=== PATIENT | female | born 1960 | race Caucasian/White ===

== ENCOUNTER 2021-01-30 10:25 | Day surgery (SDC) | payer MEDICARE, OTHER ==
[~2021-01-30] VITALS: Ht 160 cm; Wt 75.0 kg
--- NOTE | 2021-01-30 10:40 | NUR ---
RT COLLECTED COVID 19 SWAB WITH NO COMPLICATIONS. RT USED THE CEPHEID RAPID TEST THROUGH IN HOUSE LAB PER DR REQUEST AT THIS TIME.
[2021-01-30] MEDS ORDERED: CYTOMEL5 MCG (10:55)
[2021-01-30] MEDS ORDERED: LEVOTHYROXINE112 MC1 (10:55)
[2021-01-30] MEDS ORDERED: ESTRACE1 MG (10:56)
[2021-01-30] MEDS ORDERED: PAXIL20 MG (10:56)
[2021-01-30] MEDS ORDERED: CRESTOR5 MG (10:57)
--- NOTE | 2021-01-30 11:51 | NUR ---
pt updated on wait for dr. gallardo.
--- NOTE | 2021-01-30 12:59 | NUR ---
01/30/21 Alek9 Daria Nunez 1252-PATIENT ARRIVED TO PACU ON 2L NC RR EVEN. PATIENT DROWSY FOLLOWING COMMANDS, LAYING PRONE. ABNDAID CDI TO LEFT BACK. IVF INFUSING. DENIES PAIN OR NAUSEA.
--- NOTE | 2021-02-04 06:50 | PATH ---
[facility] [address] [facility] [place], [place] [address] Signed SPECIMEN(S): A BONE MARROW - CORE SPECIMEN(S): B BONE MARROW - ASPIRATION SPECIMEN(S): C FLOW CYTOMETRY, EDTA ASP CLINICAL HISTORY: Bone marrow biopsy. Chief Complaint: Multiple myeloma, unconfirmed. 60-year-old woman with positive SPEP. See attached. C90.00 (multiple myeloma not having achieved remission) DIAGNOSIS SUMMARY: A. Peripheral blood, smear: - No significant histopathologic abnormality. B. Bone marrow, aspirate, clot section, and core biopsy: - Normocellular marrow (30%) with trilineage hematopoiesis. - No increase in blasts (less than 5%). - Adequate iron stores, no ring sideroblasts. - See Diagnostic Comment. DIAGNOSTIC COMMENT: The patient's history of hypothyroidism and an SPEP demonstrating decreased albumin and beta-1 globulin levels is noted. Immunofixation was not performed. Evaluation of the current bone marrow biopsy demonstrates mildly increased plasma cells, which show polytypic light chain expression by flow cytometry and in situ hybridization stains. As such, diagnostic features of a plasma cell neoplasm are not present in the current bone marrow. Correlation with clinical and laboratory findings is recommended. Karyotype studies are pending, with results to be reported in an addendum. J[facility]:slh:C2NR PERIPHERAL BLOOD: HEMOGRAM ([facility], 01/30/2021): WBC 9.9 K/uL, RBC 4.22 M/uL, HGB 13.9 g/dL, HCT 41.7%, MCV 98.7 fL, MCH 32.9 pg, MCHC 33.4 g/dL, RDW 13.5%, PLT 336 K/uL, MPV 9.0 fL. MANUAL DIFFERENTIAL COUNT (100 cells, performed by pathologist): Segmented neutrophils 62%, lymphocytes 29%, monocytes 6%, eosinophils 3%. The red cells are normal in number and are normochromic and normocytic. Anisopoikilocytosis is not prominent. Polychromasia is not significantly increased. Leukocytes are normal in number. No significant dysplastic features are seen in the neutrophils, and circulating blasts are not detected. Lymphocytes are predominantly small and mature. PATIENT NAME: ASHLEY NASSAR PATHOLOGY DATE OF : 64 REPORT #: [id number] PHYSICIAN: JUWAN PATHOLOGY PCP: OTHER PCP REPORT IS CONFIDENTIAL AND NOT TO BE RELEASED WITHOUT AUTHORIZATION [facility] [address] [place], [place] [address] Signed Platelets are normal in number and show unremarkable morphology. BONE MARROW: BONE MARROW ASPIRATE SMEARS: The bone marrow aspirate smears show adequate cellular spicules. Myeloids are present in adequate number and demonstrate full spectrum maturation. Erythroids are also present in adequate number, showing full spectrum maturation. Blasts are not increased. An occasional plasma cell is seen, but they do not appear significantly increased. Megakaryocytes are present in adequate number and demonstrate normal morphology. MANUAL DIFFERENTIAL COUNT (200 cells): Blasts 0.5%, promyelocytes 1%, myelocytes 3.5%, metamyelocytes 1%, segs/bands 27%, erythroids 40.5%, lymphocytes 18%, plasma cells 1.5%, monocytes 4.5%, eosinophils 2.5%. BONE MARROW CORE BIOPSY AND ASPIRATE CLOT SECTION CELL BLOCK: The bone marrow core biopsy demonstrates a cellularity of approximately 30%, which is normocellular for age. The estimated M:E ratio is approximately 2:1. Both myeloids and erythroids demonstrate full spectrum maturation. A few scattered plasma cells are seen, but no abnormal clusters are appreciated. Blasts are not increased. Megakaryocytes are seen distributed throughout the marrow space, demonstrating normal morphology. Trabecular bone is normal. The bone marrow clot sections demonstrate predominantly blood with minute marrow fragments seen. SPECIAL STAINS (with adequate controls): - Iron stain (aspirate smear): Stainable iron is present, appears adequate; no ring sideroblasts identified. - Iron stain (block B1): Insufficient bone marrow spicules present on the slide for assessment of iron stores. IMMUNOHISTOCHEMICAL STAINS (block A1): - CD34: No increase in blasts; very rare cells and vessels staining. - CD138: Highlights scattered and small clusters of plasma cells, mildly increased. IN SITU HYBRIDIZATION STAINS (block A1): - [place]: Positive in subset of plasma cells, polytypic pattern. - Lambda: Positive in subset of plasma cells, polytypic pattern. [facility] FLOW CYTOMETRY: PATIENT NAME: ASHLEY NASSAR PATHOLOGY DATE OF : 64 REPORT #: [id number] PHYSICIAN: JUWAN PATHOLOGY PCP: OTHER PCP REPORT IS CONFIDENTIAL AND NOT TO BE RELEASED WITHOUT AUTHORIZATION [facility] [address] [place] [id number] Signed Bone marrow, flow cytometry: - No increase in blasts. - No monotypic B-cell or aberrant T-cell population detected. - Small population of polytypic plasma cells. - See Comment. COMMENT: Flow cytometry of this bone marrow specimen demonstrates no evidence of an increase in blasts or abnormal lymphocyte population. A small population of plasma cells is also detected, showing polytypic light chain expression. Correlation with morphologic and clinical findings is recommended for full interpretation of these results. FLOW CYTOMETRY ANALYSIS: FLOW DIFFERENTIAL (% Total CD45 vs. SSC gating): Myeloid 73%; Lymphoid 15%; Monocyte 3%; Dim CD45/Blast: 1.3%. Cell Count: 3.5 x 10*3/uL. POPULATION ANALYSIS: BLASTS: Analysis of the dim CD45 gate demonstrates 1.3% myeloblasts by CD34/CD117. LYMPHOID CELLS: The lymphocyte gate comprises 15% of total events and includes 89% T-cells with a CD4:CD8 ratio of 1.7:1 and normal boucher T-cell antigen expression. 6% of lymphocytes are polyclonal B-cells with a kappa:lambda ratio of 1.3:1. The remainders are NK-cells. MYELOID CELLS: The myeloid population comprises 73% of the total events. No aberrant or immature immunophenotypic expression is detected. MONOCYTES: The monocyte population comprises 3% of the total events. Monocytes are not increased. No aberrant immunophenotypic expression is detected. PLASMA CELLS: There is a noted concern for atypical SPEP findings. For this reason, select additional antibodies are run to further characterize the plasma cells. 1.1% polytypic plasma cells are detected (n=564) expressing CD45 DIM (variable), CD38 BR, CD138 (variable), CD19 (variable) and CD56 MOD (in subset) while negative for CD20 with a ckappa:clambda ratio of 1.2:1. Initial Antibodies Used: KAPPA, LAMBDA, CD20, CD10, CD19, CD23, CD38, FMC7, CD16, CD56, CD8, CD5, CD2, CD4, CD7, CD3, CD14, CD33, CD13, HLADR, CD34, CD117, CD15, CD45 Additional Antibodies (necessary for further plasma cell analysis): ckappa, clambda, CD138. Total Antibodies Used: 27. TCS FINAL DIAGNOSIS PERFORMED BY: Natasha Hernández MD, Jan 31 2021 3:14PM PATIENT NAME: ASHLEY NASSAR PATHOLOGY DATE OF : 64 REPORT #: [id number] PHYSICIAN: JUWAN PATHOLOGY PCP: OTHER PCP REPORT IS CONFIDENTIAL AND NOT TO BE RELEASED WITHOUT AUTHORIZATION [facility] [address] [place], [place] [address] Signed CYTOGENETICS: Pending, to be reported by addendum. GROSS DESCRIPTION: A. The specimen, labeled "Katerine, bone core," is received in formalin and consists of a single ruelas, trabecular bone core fragment, measuring 1.9 cm in greatest dimension. It is submitted in cassette (A1), following decalcification in Immunocal for 1.5 hours. B. The specimen, labeled "Katerine, clot," is received in formalin and consists of a 1.6 x 1.5 x 0.2 cm aggregate of blood clot. It is submitted entirely in cassette (B1). [place] (under the direct supervision of a pathologist) The Gross Description was prepared using a voice recognition system. The report was reviewed for accuracy; however, sound-alike word errors, addition and/or deletions may occur. If there is any question about this report, please contact Client Services. ADDITIONAL NOTES: This test was developed and its performance characteristics determined by [facility]. It has not been cleared or approved by the US Food and Drug Administration. The FDA does not require this test to go through premarket FDA review. This test is used for clinical purposes. It should not be regarded as investigational or for research. This laboratory is certified under the Clinical Laboratory Improvement Amendments (CLIA) as qualified to perform high complexity clinical laboratory testing. Immunohistochemical and/or in situ hybridization studies were performed on this case with the appropriate positive controls that react as expected. This test was developed and its performance characteristics determined by [facility]. It has not been cleared or approved by the U.S. Food and Drug Administration. The FDA has determined that such clearance or approval is not necessary. This test is used for clinical purposes. It should not be regarded as investigational or for research. [facility] is certified under the Clinical Laboratory Improvement Amendments of 1988 (CLIA) as qualified to perform high complexity clinical laboratory testing. This assay has not been validated for specimens that have been decalcified. In this case, certain antibodies were performed by both immunohistochemistry and flow cytometry analysis because flow cytometry analysis did not fully explain all the light microscopic findings. PATIENT NAME: ASHLEY NASSAR PATHOLOGY DATE OF : 64 REPORT #: [id number] PHYSICIAN: JUWAN LÓPEZ PCP: OTHER PCP REPORT IS CONFIDENTIAL AND NOT TO BE RELEASED WITHOUT AUTHORIZATION [facility] [address] [facility] [place], [place] [address] Signed Immunohistochemistry aided in the analysis. Both methods are deemed medically necessary in this case. PERFORMING LABORATORY: The technical component was performed by [facility], [address] [place] [address] (Non Garment Sewing Machine Operator: Raghavendra Galan D.O.; CLIA#: [id number]). [facility], [address] [place] [address] (Non Garment Sewing Machine Operator: Darius Mathis Jr., M.D., [facility]; CLIA#: [id number]). The technical component was performed by [facility], [place] [address] (Non Garment Sewing Machine Operator: Raghavendra Galan D.O.; CLIA#: [id number]). [facility], [address] [facility] [place] [address] (Non Garment Sewing Machine Operator: Darius Mathis Jr., M.D., [facility]; CLIA#: [id number]). IMAGES: [id number]: [id number]: [id number] Diagnostician: Natasha Hernández MD Pathologist Electronically Signed 02/03/2021 Copies: ~ PATIENT NAME: ASHLEY NASSAR PATHOLOGY DATE OF : 64 REPORT #: [id number] PHYSICIAN: JUWAN LÓPEZ PCP: OTHER PCP REPORT IS CONFIDENTIAL AND NOT TO BE RELEASED WITHOUT AUTHORIZATION
== END 2021-01-30 13:45 | disposition home or self-care (01) ==
LOC: OPS 10:25 → DS 10:31 → OPS 12:00
PROVIDERS: ATTEND Specialist
PROC: 07DR3ZX Extraction of Iliac Bone Marrow, Percutaneous Approach, Diagnostic (ICD-10-PCS; principal; 2021-01-30 12:00)
DX: C90.00 Multiple myeloma not having achieved remission (principal); E03.9 Hypothyroidism, unspecified; Z20.822 Contact with and (suspected) exposure to COVID-19
CPT/HCPCS: 80053; 83615; 85651; 88184; 88185; 88305; 88311; 88313; 88341; 88342; 88364; 88365; 99153; C9803; G0500; J2250; J3010; J7121; U0003